=== PATIENT | female | born 1955 | race Caucasian/White ===

== ENCOUNTER 2021-01-08 08:11 | Outpatient (CLI) | payer BC | END 2021-01-08 08:12 | disposition home or self-care (01) | LOC: NM 08:11 | PROVIDERS: ATTEND Internal Medicine | DX: E05.90 Thyrotoxicosis, unspecified without thyrotoxic crisis or storm (principal); R94.6 Abnormal results of thyroid function studies | CPT/HCPCS: 78014; A9516 ==

== ENCOUNTER 2021-01-14 07:57 | Outpatient (CLI) | payer BC | END 2021-01-14 07:58 | disposition home or self-care (01) | LOC: NM 07:57 | PROVIDERS: ATTEND Internal Medicine Gastroenterology | DX: R10.13 Epigastric pain (principal); K59.00 Constipation, unspecified | CPT/HCPCS: 78227; A9537 ==

== ENCOUNTER 2021-02-25 08:31 | Outpatient (CLI) | payer BC | END 2021-02-25 08:32 | disposition home or self-care (01) | LOC: BICULT 08:31 | PROVIDERS: ATTEND Internal Medicine Gastroenterology | DX: C50.919 Malignant neoplasm of unspecified site of unspecified female breast (principal); E05.90 Thyrotoxicosis, unspecified without thyrotoxic crisis or storm; K82.4 Cholesterolosis of gallbladder; R10.13 Epigastric pain; K59.00 Constipation, unspecified; R63.4 Abnormal weight loss; Z86.010 Personal history of colon polyps | CPT/HCPCS: 76705 ==

== ENCOUNTER 2024-10-16 13:16 | Outpatient (CLI) | payer MEDICARE, OTHER | END 2024-10-16 13:17 | disposition home or self-care (01) | LOC: CT 13:16 | PROVIDERS: ATTEND Otolaryngology | DX: R22.1 Localized swelling, mass and lump, neck (principal); J98.19 Other pulmonary collapse | CPT/HCPCS: 36415; 70491; 82565 ==